=== PATIENT | female | born 2000 | race Caucasian/White ===

== ENCOUNTER → 2025-08-08 | Outpatient (CLI) | payer OTHER ==
[2025-08-08 11:07] LABS: PLATELET COUNT, AUTOMATED 396 10^3/uL (150-450)
[2025-08-08 11:31] LABS: ALT/SGPT 42 U/L (7.0-40); AST/SGOT 20 U/L (<34); C REACTIVE PROTEIN QUANTITATIV < 0.50 MG/DL (<1.0); CALCIUM LEVEL 9.2 MG/DL (8.5-10.1); CARBON DIOXIDE LEVEL 25 MMOL/L (20-31); CHLORIDE LEVEL 107 MMOL/L (98-107); CHOLESTEROL LEVEL 119 MG/DL (<200); CHOLESTEROL RISK RATIO 3.99 (<5); CREATININE FOR GFR 0.66 MG/DL (0.55-1.30); GLOMERULAR FILTRATION RATE > 90.0 (>60); IRON (FE) 80 UG/DL (50-170); LDL CHOLESTEROL 76.4 MG/DL (<100); NON-HDL-C 89.2 MG/DL; PERCENT SATURATION 24.8 % (13.2-45.0); POTASSIUM SERUM 4.5 MMOL/L (3.5-5.1); SODIUM LEVEL 140 MMOL/L (136-145); TRIGLYCERIDES LEVEL 64 MG/DL (<150)
[2025-08-08 11:33] LABS: RHEUMATOID FACTOR QUANT < 3.5 IU/ML (<14)
[2025-08-08 11:45] LABS: FREE T4 1.18 NG/DL (0.89-1.76)
[2025-08-08 11:46] LABS: TOTAL 25(OH) VITAMIN D 28.4 NG/ML (20.0-100.0); VITAMIN B12 LEVEL 256 PG/ML (211-911)
[2025-08-08 11:47] LABS: ESTIMATED AVERAGE GLUCOSE 94.0 MG/DL (60-110)
[2025-08-11 20:57] LABS: LYME TOTAL ANTIBODY CIA 1.00 Index (<=0.90)
[2025-08-12 00:06] LABS: LYME AB IGG BY CIA <= 0.90 Index (<=0.90); LYME AB IGM BY CIA <= 0.90 Index (<=0.90)
== END ==
LOC: M RAD 10:22
PROVIDERS: ATTEND Registered Nurse
DX: M41.85 Other forms of scoliosis, thoracolumbar region (principal); M41.84 Other forms of scoliosis, thoracic region; M25.50 Pain in unspecified joint; R53.83 Other fatigue; Z13.1 Encounter for screening for diabetes mellitus; Z13.220 Encounter for screening for lipoid disorders